=== PATIENT | male | born 1990 | race African-American/Black ===

== ENCOUNTER 2021-07-26 07:20 | Emergency (ER) | payer MEDICAID ==
[2021-07-26] MEDS ORDERED: Ketorolac 15 MG/ML SDV IM ONE (07:47)
== END 2021-07-26 08:18 | disposition home or self-care (01) ==
LOC: JD.ED 07:20
DX: K03.81 Cracked tooth (principal)
CPT/HCPCS: 96372; 99282; 99283; J1885